=== PATIENT | female | born 1985 | race Caucasian/White ===

== ENCOUNTER 2021-01-29 10:44 | Day surgery (SDC) | payer OTHER ==
[~2021-01-29] VITALS: Ht 172.7 cm; Wt 108.7 kg
[~2021-01-29 10:44] MED LIST: BUPIVACAINE/PF 0.25% ONE; EPINEPHRINE 1 MG/ML, 1ML ONE; FENTANYL PF 100 MCG/2ML ONE; MIDAZOLAM 1 MG/ML, 2ML ONE; MISOPROSTOL 200 MCG TABLET ONE; OXYTOCIN 10 UNITS/ML, 1ML ONE; SILVER NITRATE STICK TP ONE
[2021-01-29] MEDS ORDERED: CHLORHEXIDINE 15 ML UDC ONE (10:56)
[2021-01-29] MEDS ORDERED: OXYcodone 5 MG/5 ML ORAL.SOL UDC PO PRN (11:00)
[2021-01-29] MEDS ORDERED: HYDROmorphone 1 MG/ML, 1ML INJ IVPush PRN (11:00)
[2021-01-29] MEDS ORDERED: MEPERIDINE/PF 25MG/0.5ML IVPush PRN (11:00)
[2021-01-29] MEDS ORDERED: FENTANYL PF 100 MCG/2ML IV PRN (11:00)
[2021-01-29] MEDS ORDERED: PROMETHAZINE 25 MG/ML, 1ML IVPush PRN (11:00)
[2021-01-29] MEDS ORDERED: HYDROcodone/APAP 7.5-325MG/15ML UDC PO PRN (11:00)
[2021-01-29] MEDS ORDERED: ONDANSETRON 2MG/ML, 2ML IVPush PRN (11:00)
[2021-01-29] MEDS ORDERED: [UNRECOGNIZED DRUG - OTHER] PO (11:02)
[2021-01-29 11:03] VITALS: BP 117/75
[2021-01-29 11:19] LABS: BASOPHILS % (AUTO) 1 % (0-1); EOSINOPHILS % (AUTO) 1 % (1-7); LYMPHOCYTES % (AUTO) 16 % (22-44); MEAN CORPUSCULAR HEMOGLOBIN 28.2 pg (27.0-34.8); MEAN CORPUSCULAR HGB CONC 33.1 g/dL (32.4-35.8); MEAN PLATELET VOLUME 7.4 fL (7.4-10.4); MONOCYTES % (AUTO) 5 % (2-9); NEUTROPHILS % (AUTO) 78 % (42-75); PLATELET COUNT 345 x10^3/uL (130-400); RED BLOOD COUNT 4.68 x10^6/uL (3.82-5.3); RED CELL DISTRIBUTION WIDTH 17.1 % (9.6-15.2)
[2021-01-29 11:23] LABS: MD NO
[2021-01-29] MEDS ORDERED: KETOROLAC 30 MG/1 ML ONE (11:29)
[2021-01-29] MEDS ORDERED: LACTATED RINGERS 1,000 ML IV SCH (11:30)
[2021-01-29] MEDS ORDERED: CHLORHEXIDINE 15 ML UDC PO ONE (11:30)
[2021-01-29] MEDS ORDERED: PLEASE ENTER HEIGHT AND WEIGHT MC SCH (11:30)
[2021-01-29] MEDS ORDERED: CEFAZOLIN 1,000 MG ONE (11:43)
[2021-01-29] MEDS ORDERED: DEXAMETHASONE 4 MG/ML, 1ML ONE (11:43)
[2021-01-29] MEDS ORDERED: ONDANSETRON 2MG/ML, 2ML ONE (11:43)
[2021-01-29] MEDS ORDERED: PROPOFOL 10 MG/ML, 20ML ONE (11:43)
== END 2021-01-29 14:20 | disposition home or self-care (01) ==
LOC: OUT 10:44
PROVIDERS: ATTEND Obstetrics & Gynecology
DX: O02.1 Missed abortion (principal); F41.9 Anxiety disorder, unspecified; F31.9 Bipolar disorder, unspecified; E66.3 Overweight; Z20.822 Contact with and (suspected) exposure to COVID-19; Z79.899 Other long term (current) drug therapy; Z87.891 Personal history of nicotine dependence; Z98.890 Other specified postprocedural states
CPT/HCPCS: 36415; 59820; 76998; 85025; 86850; 86900; 88305; J0171; J0690; J1100; J1885; J2250; J2405; J2590; J2704; J3010; J7120; U0003; U0005; 76856